=== PATIENT | male | born 1975 | race Hispanic/Latino ===

== ENCOUNTER 2024-05-06 13:38 | Emergency (ER) | payer SELFPAY ==
[~2024-05-06] VITALS: Ht 172.7 cm; Wt 75.7 kg
[2024-05-06 14:21] LABS: BASOPHILS # (AUTO) 0.06 K/uL (0.00-0.20); BASOPHILS % (AUTO) 0.8 % (0.0-5.0); EOSINOPHILS # (AUTO) 0.43 K/uL (0.00-0.70); EOSINOPHILS % (AUTO) 5.9 % (0.0-8.0); HEMATOCRIT 41.3 % (42-54); IMMATURE GRANULOCYTE ABSOLUTE 0.03 K/uL (0-1); LYMPHOCYTES # (AUTO) 1.7 K/uL (1.0-4.8); LYMPHOCYTES % (AUTO) 23.1 % (21.0-51.0); MEAN CORPUSCULAR HEMOGLOBIN 28.2 pg (27.0-33.0); MEAN CORPUSCULAR HGB CONC 35.4 g/dL (32.0-36.0); MEAN CORPUSCULAR VOLUME 79.9 fL (79-99); MONOCYTES # (AUTO) 0.4 K/uL (0.1-1.0); MONOCYTES % (AUTO) 5.2 % (3.0-13.0); NEUTROPHILS # (AUTO) 4.8 K/uL (1.8-7.7); NEUTROPHILS % (AUTO) 64.6 % (40.0-77.0); PLATELET COUNT (AUTO) 222 K/uL (130-400); RED BLOOD CELL COUNT(AUTO) 5.17 MIL/uL (4.50-6.20); RED CELL DISTRIBUTION WIDTH 13.1 % (11.0-15.5); WHITE BLOOD COUNT (AUTO) 7.4 K/uL (4.8-10.8)
[2024-05-06 14:33] LABS: ADD UA MICROSCOPIC YES; APPEARANCE,URINE CLEAR (CLEAR); BILIRUBIN,URINE NEGATIVE (NEGATIVE); COLOR,URINE LIGHT-YELLOW (YELLOW); GLUCOSE, URINE (UA) >=1000 mg/dL (NEGATIVE); KETONES,URINE NEGATIVE (NEGATIVE); LEUKOCYTE ESTERASE ,URINE 250 Leu/uL (NEGATIVE); NITRATE,URINE NEGATIVE (NEGATIVE); OCCULT BLOOD,URINE NEGATIVE (NEGATIVE); PROTEIN,URINE NEGATIVE (NEGATIVE); UROBILINOGEN,URINE 0.2 mg/dL (0.2-1.0)
[2024-05-06 14:34] LABS: CREATININE 0.9 mg/dL (0.5-1.3); POTASSIUM 4.2 mmol/L (3.5-5.1)
[2024-05-06 14:38] LABS: ALBUMIN 3.7 g/dL (3.5-5.0); BILIRUBIN,TOTAL 0.3 mg/dL (0.2-1.0); TOTAL PROTEIN, SERUM 7.4 g/dL (6.0-8.3)
[2024-05-06 14:40] LABS: BACTERIA,URINE RARE /HPF (None Seen); SQUAMOUS EPITHELIAL CELL,UR FEW /HPF (0-2)
[2024-05-06] MEDS: ONDANSETRON 4MG INJ IVP ONE (15:34)
[2024-05-06] MEDS: FAMOTIDINE 20MG TAB PO ONE (15:35)
[2024-05-06] MEDS: 0.9%NACL 1000ML 1,000 ML IV ONE (15:35)
[2024-05-06 16:11] LABS: ABG OXYGEN SATURATION 78.2 % (95.0-99.0); BASE EXCESS,VENOUS BLOOD GAS -0.6 (-2.0-3.0); HCO3,VENOUS BLOOD GAS 24.5 (21.0-28.0); PCO2,VENOUS BLOOD GAS 42 (32-45); PH,VENOUS BLOOD GAS 7.383 (7.350-7.450); PO2,VENOUS BLOOD GAS 43.2 mmHg (35.0-45.0); VENT MODE, BG VBG (ROOM AIR)
[2024-05-06] MEDS ORDERED: IOHEXOL-350 75 ML VIAL IV ONE (16:23)
[2024-05-06] MEDS: INSULIN HUMULIN R 100 UNIT/ML 3ML SQ STA (17:45)
[2024-05-06 18:12] VITALS: BP 127/70; PULSE 87; RESP 20; O2SAT 99
== END 2024-05-06 18:20 | disposition home or self-care (01) ==
LOC: EDH 13:38
DX: E11.65 Type 2 diabetes mellitus with hyperglycemia (principal); N39.0 Urinary tract infection, site not specified; I10 Essential (primary) hypertension
CPT/HCPCS: 99285; 74177; 96374; 96361; 83735; 80053; 82803; 83690; 85025; 87086; 82948; 81001; 36415; 96372; 36600; J7030; J2405 ×2; Q9967